=== PATIENT | male | born 1950 | race Caucasian/White ===

== ENCOUNTER 2017-02-20 08:48 | Inpatient (IN) | payer MEDICARE, BC ==
[~2017-02-20] VITALS: Ht 162.6 cm; Wt 69.2 kg
[2017-02-20] VITALS (22 sets, daily range): BP systolic 137–181; BP diastolic 59–103; PULSE 81–101; RESP 8–28; Ht 162.6 cm; Wt 69.2 kg
[~2017-02-20 08:48] MED LIST: DESFLURANE 15 MIN ONE; LIDOCAINE 2% (SDV) 5 ML INJ ONE
[2017-02-20] MEDS ORDERED: TAMS-14 PO (09:37)
[2017-02-20] MEDS ORDERED: METF500T4 PO (09:37)
[2017-02-20] MEDS ORDERED: FINA5TAB4 PO (09:38)
[2017-02-20] MEDS ORDERED: PROPOFOL 20 ML ONE (10:35)
[2017-02-20] MEDS ORDERED: MIDAZOLAM 1 MG/ML 2 ML INJ ONE (10:35)
[2017-02-20] MEDS ORDERED: ROCURONIUM 50 MG INJ ONE (10:35)
[2017-02-20] MEDS ORDERED: SUCCINYLCHOLINE CHLORIDE 100 MG/5 ML SYG IV ONE (10:35)
[2017-02-20] MEDS ORDERED: SUGAMMADEX SODIUM 200 MG/2 ML VIAL IV ONE ×2 (10:43→13:04)
[2017-02-20] MEDS: D5W-0.45 NACL + KCL 20 MEQ 1,000 ML IV SCH ×2 (10:54→20:25)
--- NOTE | 2017-02-20 10:54 | HPN ---
Date/Time of Note Date/Time of Note DATE: 02/20/17 TIME: 10:53 Interval H&P Admission Note Pt. seen H&P reviewed: No system changes YOHAN MONSIVAIS PA-C Feb 20, 2017 10:54
[2017-02-20] MEDS: CEFAZOLIN 1 GM/50 ML (PMX) 50 ML IVPB SCH ×2 (11:00→18:48)
[2017-02-20] MEDS ORDERED: HYDROmorphONE 0.2 MG/ML PCA IV SCH (11:00)
[2017-02-20] MEDS ORDERED: ACETAMINOPHEN 325 MG TAB PO PRN (11:00)
[2017-02-20] MEDS ORDERED: AL HYDROX/MG HYDROX/SIMETH 30 ML CUP PO PRN (11:00)
[2017-02-20] MEDS ORDERED: BISACODYL 10 MG SUPP PR PRN (11:00)
[2017-02-20] MEDS ORDERED: HYDROCODONE/APAP (10/325) TAB PO PRN ×2 (11:00)
[2017-02-20] MEDS ORDERED: CYCLOBENZAPRINE 10 MG TAB PO PRN (11:00)
[2017-02-20] MEDS ORDERED: CEPASTAT LOZENGE MT PRN (11:00)
[2017-02-20] MEDS ORDERED: DIPHENHYDRAMINE 50 MG INJ IV PRN ×2 (11:00→14:00)
[2017-02-20] MEDS ORDERED: ZOLPIDEM 5 MG TAB PO PRN (11:00)
[2017-02-20] MEDS ORDERED: HYDROmorphONE 1 MG/ML SYG IV PRN (11:00)
[2017-02-20] MEDS ORDERED: NALOXONE (0.4 MG/ML) INJ IV PRN (11:00)
[2017-02-20] MEDS ORDERED: ONDANSETRON 4 MG INJ IV PRN ×2 (11:00→14:00)
[2017-02-20] MEDS ORDERED: BUPIVACAINE 0.25% (MPF) 30 ML INJ ONE (11:14)
[2017-02-20] MEDS ORDERED: BUPIVACAINE 0.5%/EPI (SDV) 10 ML INJ ONE (11:14)
[2017-02-20] MEDS ORDERED: SURGIFOAM POWDER 1 GM KIT ONE (11:14)
[2017-02-20] MEDS ORDERED: THROMBIN 5000 UNIT VIAL ONE (11:15)
[2017-02-20] MEDS ORDERED: CA CHLORIDE 10% 10 ML SYRINGE ONE (11:15)
[2017-02-20] MEDS ORDERED: POLYMYXIN/BACITRACIN 1L IRRIG ONE (11:15)
[2017-02-20] MEDS ORDERED: BUPIVACAINE 0.25%/EPI (SDV) 10 ML INJ ONE (11:31)
[2017-02-20] MEDS ORDERED: CEFAZOLIN 1 GM INJ ONE (11:53)
[2017-02-20] MEDS ORDERED: FAMOTIDINE 20 MG INJ ONE (12:21)
[2017-02-20] MEDS ORDERED: ONDANSETRON 4 MG INJ ONE (12:21)
[2017-02-20] MEDS ORDERED: DEXAMETHASONE 4 MG/ML 1 ML INJ ONE (12:21)
[2017-02-20] MEDS ORDERED: FENTAnyl 50 MCG/ML VIAL ONE (12:39)
--- NOTE | 2017-02-20 13:22 | OPR ---
Date/Time of Note Date/Time of Note DATE: 02/20/17 TIME: 13:20 Operative Report Preoperative Diagnosis right L3-4 HNP Postoperative Diagnosis right L3-4 HNP Operation/Procedure Performed right L3-4 discectomy Surgeon: QUANG MORA MD conference assistant: YOHAN MONSIVAIS PA-C Anesthesia Type: general Estimated Blood Loss: 10 - 50 ml's Specimens right L3-4 disc Complications: no QUANG MORA MD Feb 20, 2017 13:21
--- NOTE | 2017-02-20 13:29 | RADRPT ---
PROCEDURE: Intraoperative fluoroscopy. CLINICAL INDICATION: Intraoperative fluoroscopy for an L3-L4 discectomy. TECHNIQUE: Intraoperative fluoroscopy of the lumbar spine was performed. 4 images were made avail able for review. COMPARISON: None. FINDINGS: Surgical clip in the projects over the posterior elements of L3-L4. Fluoroscopy time: 6.7 seconds Images: 4 IMPRESSION: As above. RPTAT: PP Physician Rene Date Time Electronically viewed and signed by Physician Rene on 02/20/2017 13:29 LG/
--- NOTE | 2017-02-20 13:51 | OPR ---
DATE OF OPERATION: 02/20/2017 PREOPERATIVE DIAGNOSIS: Right L3-4 disk herniation with radiculopathy. POSTOPERATIVE DIAGNOSIS: Right L3-4 disk herniation with radiculopathy. OPERATION PERFORMED: 1. Right L3-4 lumbar microdiskectomy. 2. Lateral localizing film x2. 3. Use of operative microscope. 4. Intraoperative neural monitoring (1 hour and 15 minutes.) SURGEON: Paul Horan. ACCESSIONER: MARVA Alcala. NEED FOR FILTER PRESS TENDER HEAD: claims assistant was required for retraction of the neurovascular elements. FINDINGS: Neural monitoring at the start of the case revealed left L4 amplitude 10 percent, right L4 amplitude 50 percent; right L5 amplitude 50 percent. At the end of the case, nerve signal returned to normal. The patient had right-sided herniation at L3-4. ESTIMATED BLOOD LOSS: Less than 30 cc . DRAINS: None. SPECIMENS: Disk. COMPLICATIONS: None. ANESTHESIOLOGIST: Dr. Rivera. ANESTHESIA: General. INDICATION FOR PROCEDURE: This 66-year-old gentleman with right lumbosacral radiculopathy in the setting of a herniation at L3-4. He had failed nonoperative measures. Therefore, I recommended proceeding with the abovementioned surgery. Preoperatively, we discussed risks, benefits, alternatives. He understood and wished to proceed. OPERATIVE PROCEDURE: The patient was identified prior in the holding area, given Ancef antibiotics, taken to the operating room, where he was successfully placed under general anesthesia. Neural monitoring was placed and sequential devices were applied. Neural monitoring was utilized during the procedure for 1 hour and 15 minutes to include SSEP, MEP, and EMG. This was performed by [facility]. Start time was 12 p.m., closure time was 1:15 p.m. Patient was placed on the operating room table in prone position on a Raj frame. All bony problems were well padded. The back was prepped in the usual sterile fashion. Using a sterile fluoroscope, I identified the incision site. I anesthetized the skin with Marcaine and epinephrine. The skin was incised. Incision was taken down to the dorsal fascia, which was incised with Bovie cautery. I then subperiosteally dissected the right L3 lamina. A hemilaminotomy was then completed after a repeat lateral film was obtained to confirm the correct levels. Microscope was brought in and ligamentum flavum was then removed. I identified the traversing nerve root, which my orthotics assistant retracted medially. Once this was done, I identified the annulus, made an annulotomy followed by diskectomy. Once this was done, all nerve signals returned to normal. I irrigated the disk space and the wound. Valsalva maneuver was performed and there was no leak of CSF. Epidural catheter was passed through which I injected 100 mcg of fentanyl. I then injected PPP over the dura for hemostatic purposes. Retractors were removed. Microscope was taken off the field. I closed the deep fascia with 1 Vicryl stitch. I closed subcu tissue with a 2-0 Vicryl stitch. 4-0 Monocryl closure was then performed. Dermabond and a sterile dressing were then applied. The patient was then awakened from anesthesia, and taken to recovery in stable condition. Lap, sponge, instrument counts correct x2. There were no apparent complications during the procedure. The patient will be admitted to orthopedic wang for routine postoperative care to include pain control management, antibiotics and physical therapy. Dictated By: Paul Horan MD /campos/[email or web address] /Document#: [id number]
[2017-02-20] MEDS ORDERED: MEPERIDINE 25 MG INJ IV PRN (14:00)
[2017-02-20] MEDS ORDERED: HYDROmorphONE (0.2 MG/ML) 10ML SYG IV PRN ×2 (14:00)
[2017-02-20] MEDS ORDERED: LABETALOL HCL 20MG INJ IV PRN (14:00)
[2017-02-20] MEDS ORDERED: hydrALAzine 20 MG INJ IV PRN (14:00)
--- NOTE | 2017-02-20 14:11 | HP ---
Date/Time of Note Date/Time of Note DATE: 02/20/17 TIME: 14:07 Assessment/Plan VTE Prophylaxis VTE Prophylaxis Intervention: SCD's Lines/Catheters IV Catheter Type (from Nrsg): Saline Lock Assessment/Plan Problems: (1) Status post lumbar discectomy Onset Date: ~ 02/20/2017 Status: Acute Comment: He is stable postop and is okay to go to regular orthopedic floor postoperatively. He will have aggressive physical therapy intervention will try and get early motion. He will have SCDs for prophylaxis as well as H2 receptor lorena (2) Obstructive sleep apnea Status: Chronic Comment: Noted. He is not using a CPAP at home if necessary we will add that here (3) Essential hypertension Status: Chronic Comment: Continue his outpatient regimen (4) Hypothyroidism (acquired) Status: Chronic Comment: Maintain levothyroxine replacement therapy (5) Benign prostatic hypertrophy Status: Chronic Comment: Continue on alpha blockade along with a 5 alpha reductase inhibitor Qualifiers: Prostatic enlargement morphology: unspecified morphology Lower urinary tract symptom presence: symptoms present Qualified Code: N40.1 - Benign prostatic hyperplasia with lower urinary tract symptoms, unspecified morphology (6) Hyperlipidemia associated with type 2 diabetes mellitus Status: Chronic Comment: Continue statin therapy (7) Type 2 diabetes mellitus with diabetic neuropathy, unspecified Status: Chronic Comment: Continue therapy with appropriate sliding scale coverage HPI/ROS Admit Date/Time Admit Date/Time Feb 20, 2017 at 08:48 Hx of Present Illness 66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 Horan. Patient is seen in recovery postop. At this time he reports he is feeling a bit groggy. ROS Constitutional: no complaints (Denies fevers chills or sweats) ENT: no complaints Respiratory: no complaints Cardiovascular: no complaints Gastrointestinal: no complaints Genitourinary: no complaints (Please note history BPH) Musculoskeletal: back pain (Complains of incisional back pain) Neurologic: no complaints PMH/Family/Social Past Medical History Medical History: diabetes, high cholesterol, hypertension, hypothyroid, other ( Benign prostatic hypertrophy) Past Surgical History Status post acute lumbar discectomy Family History Significant Family History: diabetes, hypertension Social History 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 Alcohol Use: none Smoking Status: Former smoker Drug Use: none Exam/Review of Systems Vital Signs Vitals Vital Signs Date Time Temp Pulse Resp B/P Pulse Ox O2 Delivery O2 Flow Rate FiO2 02/20/17 13:51 84 17 174/73 99 Nasal Cannula 2.0 02/20/17 13:32 98.0 Exam Exam Arousable male who is still narcotize postop in the recovery room Head: atraumatic, normocephalic Eyes: EOMI, PERRL, nl conjunctiva, nl lids, nl sclera ENMT: mucosa pink and moist, nl external ears & nose, nl lips & teeth, nl nasal mucosa & septum Neck: non-tender, supple Respiratory: clear to auscultation, normal air movement Cardiovascular: nl pulses, regular rate and rhythm Gastrointestinal: nl liver, spleen, non-tender, soft Neurological: FACULTY HEAD II-XII intact, nl speech, nl strength Medications Medications Current Medications Potassium Chloride/Dextrose/ Sod Cl (D5-1/2ns + KCl 20 Meq) 1,000 ml @ 100 mls/ hr Q10H IV ; Start 02/20/17 at 10:54 Acetaminophen/ Hydrocodone Bitart ([place] (10/325)) 1 tab Q4H PRN PO PAIN LEVEL 1-5; Start 02/20/17 at 11:00 Acetaminophen/ Hydrocodone Bitart ([place] (10/325)) 2 tab Q4H PRN PO PAIN LEVEL 6-10; Start 02/20/17 at 11:00 Hydromorphone HCl 0.2 mg 0.2 mg Q1H PRN IV BREAKTHROUGH PAIN; Start 02/20/17 at 11:00 Cefazolin Sodium (Ancef 1 Gm/50 ml (Pmx)) 50 ml @ 100 mls/hr Q8H IVPB ; Start 02/20/17 at 11:00; Stop 02/21/17 at 03:29 Ondansetron HCl (Zofran Inj) 4 mg Q6H PRN IV NAUSEA AND/OR VOMITING; Start 02/20 at 11:00 Bisacodyl (Dulcolax Supp) 10 mg DAILY PRN PA CONSTIPATION; Start 02/20/17 at 11: 00 Docusate Sodium (Colace) 100 mg BID PO ; Start 02/20/17 at 21:00 Al Hydrox/Mg Hydrox/Simethicone (Mag-Al Plus) 15 ml Q6H PRN PO CONSTIPATION/ DYSPEPSIA; Start 02/20/17 at 11:00 Acetaminophen (Tylenol Tab) 650 mg Q4H PRN PO BARRON OR TEMP GREATER THAN 101.3F; Start 02/20/17 at 11:00 Cyclobenzaprine HCl (Flexeril) 10 mg TID PRN PO MUSCLE SPASMS; Start 02/20/17 at 11:00 Phenol (Cepastat Lozenge) 1 lozenge PRN PRN MT SORE THROAT; Start 02/20/17 at 11 :00 Diphenhydramine HCl (Benadryl) 25 mg Q6H PRN IV ITCHING; Start 02/20/17 at 11:00 Naloxone HCl (Narcan) 0.2 mg Q2M PRN IV RR 8 BREATHS/MIN OR LESS; Start at 11:00 Hydromorphone HCl (Dilaudid [employer]) [employer] to be started in PACU Q4PCA IV Last administered on 02/20/17t 13:46; Admin Dose 6 MG; Start 02/20/17 at 11:00 Miscellaneous Information 1. Hold [employer] at 1,000... [employer] IV ; Start 02/20/17 at 11: 00 NEIL FORTUNE MD Feb 20, 2017 14:11
[2017-02-20] MEDS ORDERED: DEXTROSE 50% 50 ML SYRINGE IV PRN ×2 (14:30)
[2017-02-20] MEDS ORDERED: GLUCAGON 1 MG INJ IM PRN (14:30)
[2017-02-20] MEDS ORDERED: GLUCOSE GEL 15 GRAM TUBE BUCCAL PRN (14:30)
[2017-02-20] MEDS ORDERED: GLUCOSE GEL 15 GRAM TUBE PO PRN ×2 (14:30)
[2017-02-20] MEDS: INSULIN ASPART [NOVOLOG] 3 ML PEN SC SCH ×2 (17:55→20:23)
[2017-02-20] MEDS: metFORMIN 500 MG TAB PO SCH (18:01)
[2017-02-20] MEDS: ACCU-CHEK XX SCH (19:55)
[2017-02-20] MEDS: DOCUSATE SODIUM 100 MG CAP PO SCH (20:21)
[2017-02-20] MEDS ORDERED: TAMSULOSIN (SR) 0.4 MG CAP PO SCH (21:00)
[2017-02-21 00:32] VITALS: BP 122/62; RESP 20
[2017-02-21] MEDS ORDERED: ACCU-CHEK XX SCH ×2 (02:00)
[2017-02-21] MEDS: CEFAZOLIN 1 GM/50 ML (PMX) 50 ML IVPB SCH ×2 (03:30→12:07)
[2017-02-21 05:11] VITALS: BP 112/63; PULSE 69; RESP 17
[2017-02-21 05:13] LABS: ABNORMAL IP MESSAGE 1; BASOPHILS % 0.2 % (0.0-2.0); HEMATOCRIT 41.9 % (42.0-52.0); HEMOGLOBIN 13.5 g/dl (14.0-18.0); LYMPHOCYTES # 1.4 10^3/ul (0.8-2.9); LYMPHOCYTES % 8.6 % (15.0-51.0); MEAN CORPUSCULAR HGB CONC 32.2 g/dl (32.0-37.0); MEAN CORPUSCULAR VOLUME 86.9 fl (82.0-101.0); MEAN PLATELET VOLUME 11.5 fl (7.4-10.4); MONOCYTE # 1.9 10^3/ul (0.3-0.9); MONOCYTES % 11.3 % (0.0-11.0); NEUTROPHIL # 13.2 10^3/ul (1.6-7.5); NEUTROPHILS % 79.5 % (39.0-77.0); PLATELET COUNT 298 10^3/UL (140-415); POSITIVE DIFF @See below; RED BLOOD COUNT 4.82 10^6/ul (4.70-6.10); RED CELL DISTRIBUTION WIDTH 14.1 % (11.5-14.5); WHITE BLOOD COUNT 16.6 10^3/ul (4.8-10.8)
[2017-02-21 05:46] LABS: CALCIUM 8.6 mg/dl (8.4-10.2); CREATININE 1.35 mg/dl (0.61-1.24); MAGNESIUM 1.7 mg/dl (1.7-2.5); POTASSIUM 4.5 mmol/L (3.5-5.1)
[2017-02-21] MEDS: D5W-0.45 NACL + KCL 20 MEQ 1,000 ML IV SCH (06:30)
[2017-02-21 08:13] VITALS: BP 133/76; RESP 18
[2017-02-21] MEDS ORDERED: FINASTERIDE 5 MG TAB PO SCH (09:00)
[2017-02-21] MEDS: metFORMIN 500 MG TAB PO SCH (09:03)
[2017-02-21] MEDS: DOCUSATE SODIUM 100 MG CAP PO SCH (09:03)
[2017-02-21] MEDS: INSULIN ASPART [NOVOLOG] 3 ML PEN SC SCH ×2 (09:03→12:57)
--- NOTE | 2017-02-21 09:44 | DS ---
Date/Time of Note Date/Time of Note DATE: 02/21/17 TIME: 09:42 Discharge Summary Admission/Discharge Info Admit Date/Time Feb 20, 2017 at 08:48 Discharge Date/Time 02/21/17 Discharge Diagnosis s/p lumbar discectomy Patient Condition: Good Hospital Course the patient was admitted to the ortho wang after undergoing a lumbar discectomy. his post op course was uncomplicated. by post op day #1 he was deemed stable for discharge with follow-up arranged with the undersigned. Home Meds Reported Medications Finasteride* (Finasteride*) 5 Mg Tablet, 5 MG PO DAILY, TAB 02/20/17 Tamsulosin Hcl* (Flomax*) 0.4 Mg Cap.er.24h, 0.4 MG PO HS, CAP 02/20/17 Metformin Hcl* (Metformin Hcl*) 500 Mg Tablet, 500 MG PO WITH BREAKFAST DINNE, # 30 TAB 02/20/17 Primary Care Provider Not On Staff Doctor Pending Labs Laboratory Tests Test 02/20/17 10:17 02/20/17 17:39 02/20/17 20:20 02/21/17 04:43 Bedside Glucose 139mg/dL (70-220) 191mg/dL (70-220) 152mg/dL (70-220) White Blood Count 16.610^3/ul (4.8-10.8) Red Blood Count 4.8210^6/ul (4.70-6.10) Hemoglobin 13.5g/dl (14.0-18.0) Hematocrit 41.9% (42.0-52.0) Mean Corpuscular Volume 86.9fl (82.0-101.0) Mean Corpuscular Hemoglobin 28.0pg (29.0-33.0) Mean Corpuscular Hemoglobin Concent 32.2g/dl (32.0-37.0) Red Cell Distribution Width 14.1% (11.5-14.5) Platelet Count 27046^3/UL (140-415) Mean Platelet Volume 11.5fl (7.4-10.4) Neutrophils % 79.5% (39.0-77.0) Lymphocytes % 8.6% (15.0-51.0) Monocytes % 11.3% (0.0-11.0) Eosinophils % 0.0% (0.0-7.0) Basophils % 0.2% (0.0-2.0) Nucleated Red Blood Cells % 0.0/100WBC (0.0-0.0) Neutrophils # 13.210^3/ul (1.6-7.5) Lymphocytes # 1.410^3/ul (0.8-2.9) Monocytes # 1.910^3/ul (0.3-0.9) Eosinophils # 0.010^3/ul (0.0-0.5) Basophils # 0.010^3/ul (0.0-0.1) Nucleated Red Blood Cells # 0.010^3/ul (0.0-0.0) Test 02/21/17 04:44 02/21/17 08:42 Sodium Level 141mmol/L (135-144) Potassium Level 4.5mmol/L (3.5-5.1) Chloride Level 99mmol/L (97-110) Carbon Dioxide Level 30mmol/L (21-31) Anion Gap 17 (8-16) Blood Urea Nitrogen 16mg/dl (7-20) Creatinine 1.35mg/dl (0.61-1.24) Glucose Level 159mg/dl (70-220) Hemoglobin A1c 6.4% (0-5.9) Calcium Level 8.6mg/dl (8.4-10.2) Magnesium Level 1.7mg/dl (1.7-2.5) Bedside Glucose 141mg/dL (70-220) QUANG MORA MD Feb 21, 2017 09:44
[2017-02-21] MEDS: ACCU-CHEK XX SCH ×2 (11:20→13:40)
== END 2017-02-21 15:45 | disposition home or self-care (01) | DRG 520 ==
LOC: REC 08:48 → EDSTATUS 11:30 → MS1 15:10
PROVIDERS: ADMIT Specialist; ATTEND Specialist
PROC: 0SB20ZZ Excision of Lumbar Vertebral Disc, Open Approach (ICD-10-PCS; principal; 2017-02-20 11:30)
DX: M51.16 Intervertebral disc disorders with radiculopathy, lumbar region (principal); E11.40 Type 2 diabetes mellitus with diabetic neuropathy, unspecified; E11.69 Type 2 diabetes mellitus with other specified complication; G47.33 Obstructive sleep apnea (adult) (pediatric); I10 Essential (primary) hypertension; E03.9 Hypothyroidism, unspecified; N40.1 Benign prostatic hyperplasia with lower urinary tract symptoms; E78.5 Hyperlipidemia, unspecified
CPT/HCPCS: 72100; 80048; 82962; 83036; 83735; 85025; 86999; 88304; 97116; 97162; 97530; J0690; J1100; J1170; J1815; J2250; J2405; J3010; J3480; J7999

== ENCOUNTER 2019-03-14 22:53 | Emergency (ER) | payer MEDICARE, BC ==
[~2019-03-14] VITALS: Ht 162.6 cm; Wt 65.7 kg
[~2019-03-14 22:53] MED LIST changes: +BACI28.34 TOP; +CLIN300C10 PO; -DESFLURANE 15 MIN ONE; +FINA5TAB4 PO; -LIDOCAINE 2% (SDV) 5 ML INJ ONE; +METF500T24 PO; +SULF1TAB31 PO; +TAMS-14 PO
[2019-03-14 23:01] VITALS: Ht 162.6 cm; Wt 65.7 kg
[2019-03-15] MEDS ORDERED: HYDROCODONE/APAP (5/325) TAB PO ONE (01:00)
[2019-03-15] MEDS ORDERED: CLINDAMYCIN 900 MG (PMX) 50 ML IVPB SCH (01:00)
[2019-03-15 02:04] VITALS: BP 139/83; PULSE 62; RESP 15
== END 2019-03-15 02:07 | disposition home or self-care (01) ==
LOC: E/R 22:53
DX: L03.011 Cellulitis of right finger (principal); I10 Essential (primary) hypertension; E11.9 Type 2 diabetes mellitus without complications; E03.9 Hypothyroidism, unspecified; Z79.84 Long term (current) use of oral hypoglycemic drugs
CPT/HCPCS: 96374

== ENCOUNTER 2019-03-17 07:33 | Emergency (ER) | payer MEDICARE, BC ==
[~2019-03-17] VITALS: Ht 162.6 cm; Wt 63.3 kg
[2019-03-17 07:35] VITALS: Ht 162.6 cm; Wt 63.3 kg
[2019-03-17] MEDS ORDERED: HYDROCODONE/APAP (10/325) TAB PO ONE (08:00)
[2019-03-17] MEDS ORDERED: PIPER-TAZO 3.375 GM IV (PMX) 100 ML IVPB STA (08:10)
[2019-03-17] MEDS ORDERED: VANCOMYCIN 1 GM (PMX) 250 ML IVPB STA (08:10)
[2019-03-17] MEDS ORDERED: TRIMETHOPRIM/SULFAMETHOX (DS) TAB PO ONE (11:00)
[2019-03-17 11:48] VITALS: BP 130/72; PULSE 70; RESP 16
== END 2019-03-17 11:49 | disposition home or self-care (01) ==
LOC: E/R 07:33
DX: M65.9 Synovitis and tenosynovitis, unspecified (principal); E11.9 Type 2 diabetes mellitus without complications; I10 Essential (primary) hypertension; E03.9 Hypothyroidism, unspecified; Z79.84 Long term (current) use of oral hypoglycemic drugs
CPT/HCPCS: 36415; 80048; 83605; 85025; 87040; 96374; 96375; 99284; J2543; J3370